=== PATIENT | female | born 1970 | race Caucasian/White ===

== ENCOUNTER 2016-09-09 18:06 | Inpatient (IN) | payer OTHER ==
[2016-09-09] MEDS ORDERED: methylPREDNISolone SOD SUCC 125 MG/2 ML VIAL IVP ONE (18:18)
[2016-09-09] MEDS ORDERED: D5W IV ONE (18:20)
[2016-09-09] MEDS ORDERED: ACYCLOVIR IV ONE (18:20)
--- NOTE | 2016-09-09 18:20 | EDPHY ---
H & P Stated Complaint: swollen lips. right side face swollen. started Friday getting worse Time Seen by Provider: 09/09/16 18:15 HPI/ROS: CHIEF COMPLAINT: Face infection HISTORY OF PRESENT ILLNESS: Patient is a 46-year-old female who comes to the emergency department complaining of swelling in her face and lips. She had a cold sore last week on her right upper lip that seemed to get larger and larger. For last 3 days she has also had swelling of her right cheek and upper and lower lips. She does not have any swelling of her tongue or throat. No difficulty breathing or stridor. She has not had any highs. No fever. No trauma. She has never had anything like this happen before. She does not have any significant past medical history. This is been progressing slowly. She has pictures of herself from last night on her phone the look essentially the same. REVIEW OF SYSTEMS: Constitutional: denies: chills, fever, recent illness, recent injury EENTM: See HPI Respiratory: denies: cough, shortness of breath Cardiac: denies: chest pain, irregular heart rate, lightheadedness, palpitations Gastrointestinal/Abdominal: denies: abdominal pain, diarrhea, nausea, vomiting, blood streaked stools Genitourinary: denies: dysuria, frequency, hematuria, pain Musculoskeletal: denies: joint pain, muscle pain Skin: denies: lesions, rash, jaundice, bruising Neurological: denies: headache, numbness, paresthesia, tingling, dizziness, weakness Hematologic/Lymphatic: denies: blood clots, easy bleeding, easy bruising Immunologic/allergic: denies: HIV/AIDS, transplant EXAM: GENERAL: Well-appearing, well-nourished and in no acute distress. HEAD: Atraumatic, normocephalic. EYES: Pupils equal round and reactive to light, extraocular movements intact, sclera anicteric, conjunctiva are normal. ENT: Patient has significantly edematous upper and lower lips. No visible tongue swelling or palate swelling or airway edema. She has weak peeing erythematous skin on her right cheek slightly [place]. No fluctuance. TMs normal , nares patent, oropharynx clear without exudates. Moist mucous membranes. NECK: Normal range of motion, supple without lymphadenopathy or JVD. No stridor. LUNGS: Breath sounds clear to auscultation bilaterally and equal. No wheezes rales or rhonchi. No stridor. HEART: Regular rate and rhythm without murmurs, rubs or gallops. ABDOMEN: Soft, nontender, normoactive bowel sounds. No guarding, no rebound. No masses appreciated. BACK: No CVA tenderness, no spinal tenderness, step-offs or deformities EXTREMITIES: Normal range of motion, no pitting or edema. No clubbing or cyanosis. NEUROLOGICAL: Cranial nerves II through XII grossly intact. Normal speech, normal gait. 5/5 strength, normal movement in all extremities, normal sensation PSYCH: Normal mood, normal affect. SKIN: See above Source: Patient Exam Limitations: No limitations - Personal History LMP (Females 10-55): Hysterectomy Current Tetanus/Diphtheria Vaccine: Yes Current Tetanus Diphtheria and Acellular Pertussis (TDAP): Yes - Medical/Surgical History Hx Asthma: No Hx Chronic Respiratory Disease: No Hx Diabetes: No Hx Cardiac Disease: No Hx Renal Disease: No Hx Cirrhosis: No Hx Alcoholism: No Hx HIV/AIDS: No Hx Splenectomy or Spleen Trauma: No - Family History Significant Family History: No pertinent family hx - Social History Smoking Status: Never smoked Alcohol Use: Sober Drug Use: None Constitutional: Initial Vital Signs Temperature (C) 36.9 C 09/09/16 18:07 Heart Rate 84 09/09/16 18:07 Respiratory Rate 16 09/09/16 18:07 Blood Pressure 135/96 H 09/09/16 18:07 O2 Sat (%) 96 09/09/16 18:07 O2 Delivery Mode Room Air Allergies/Adverse Reactions: No Known Allergies Allergy (Verified 09/09/16 20:46) Home Medications: Medication Instructions Recorded Herbals/Supplements -Info Only 1 ea PO DAILY 09/09/16 Valacyclovir HCl [Valtrex] 1,000 mg PO BID 09/09/16 Medical Decision Making - Diagnostics Imaging: Discussed imaging studies w/ machine scallop cutter Radiologist ED Course/Re-evaluation: Patient looks like she has impetigo of the right cheek causing angioedema of her lips and face. I will obtain a CT scan. I have ordered Rocephin and acyclovir wound cultures and blood cultures. We will consult ENT. Discussed the case with Dr SHABANA Cruz who will admit. 8:15 p.m. I discussed the case with Dr. Solis from ENT who will consult. She agrees with antibiotics and admission. At this point there is nothing surgical. She is not concerned about the patient's airway at this point. Differential Diagnosis: Partial list of the Differential diagnosis considered include but were not limited to; facial cellulitis abscess, dental infection, erysipelas, impetigo and although unlikely based on the history and physical exam, I also considered allergic reaction, urticaria, angioedema. - Data Points Laboratory Results: Laboratory Results 09/09/16 18:20 09/09/16 18:20 Microbiology Results: MICROBIOLOGY 09/09/16 16:55 Face - Swab Gram Stain - Final 09/09/16 16:55 Face - Swab Wound Culture - Preliminary Medications Given: Discontinued Medications Ceftriaxone Sodium/Dextrose (Rocephin 1 Gm (Premix)) 50 mls @ 100 mls/hr IV EDNOW ONE PRN Reason: Protocol Stop: 09/09/16 18:45 Last Admin: 09/09/16 18:39 Dose: 50 mls Acyclovir 70 mg/ Dextrose 101.4 mls @ 100 mls/hr IV EDNOW ONE Stop: 09/09/16 19:20 Last Admin: 09/09/16 19:42 Dose: 101.4 mls Methylprednisolone Sodium Succinate (Solu-Medrol) 125 mg IVP EDNOW ONE Stop: 09/09/16 18:19 Last Admin: 09/09/16 18:27 Dose: 125 mg Departure - Departure Disposition: [facility] Inpatient Acute Clinical Impression: Facial cellulitis Condition: Fair
[2016-09-09 18:31] LABS: % IMMATURE GRANULYOCYTES 0.4 % (0.0-1.1); ABSOLUTE IMMATURE GRANULOCYTES 0.04 10^3/uL (0.00-0.10); ADD DIFF? NO; ADD MORPH? NO; ADD SCAN? NO; ATYPICAL LYMPHOCYTE FLAG 10 (0-99); FRAGMENT RBC FLAG 0 (0-99); HEMOGLOBIN 16.2 g/dL (12.6-16.3); LEFT SHIFT FLG 0 (0-99); LIPEMIA HEMOLYSIS FLAG 90 (0-99); MEAN CELL HEMOGLOBIN 30.2 pg (27.9-34.1); MEAN CELL HEMOGLOBIN CONCENTR. 33.8 g/dL (32.4-36.7); MEAN CELL VOLUME 89.6 fL (81.5-99.8); MEAN PLATELET VOLUME 9.6 fL (8.7-11.7); PLATELET CLUMPS FLAG 10 (0-99); PLATELET COUNT 229 10^3/uL (150-400); RED BLOOD CELL COUNT 5.36 10^6/uL (4.18-5.33)
[2016-09-09 18:40] LABS: INR 1.02 (0.83-1.16); PROTIME(PATIENT) 13.3 SEC (12.0-15.0)
[2016-09-09 18:41] LABS: APTT 25.7 SEC (23.0-38.0)
[2016-09-09 18:53] LABS: ANION GAP 15 mEq/L (8-16); BILIRUBIN,TOTAL 1.2 mg/dL (0.1-1.4); CALCIUM 10.4 mg/dL (8.5-10.4); CARBON DIOXIDE 21 mEq/l (22-31); CHLORIDE 108 mEq/L (97-110); CREATININE 0.7 mg/dL (0.6-1.0); GLOMERULAR FILTRATION RATE > 60; GLUCOSE 105 mg/dL (70-100); POTASSIUM 3.9 mEq/L (3.5-5.2); SODIUM 144 mEq/L (134-144)
[2016-09-09] MEDS ORDERED: methylPREDNISolone SOD SUCC 125 MG/2 ML VIAL ONE (19:17)
[2016-09-09] MEDS ORDERED: IOPAMIDOL (ISOVUE-300) 100 ML BTL ONE (19:19)
[2016-09-09] MEDS ORDERED: ONDANSETRON DISINTEGRATING 4 MG TAB PO PRN (20:55)
[2016-09-09] MEDS ORDERED: ONDANSETRON 4 MG/2 ML VIAL IVP PRN (20:55)
[2016-09-09] MEDS ORDERED: ACETAMINOPHEN 325 MG TAB PO PRN (20:55)
[2016-09-09 21:03] LABS: COLOR PALE YELLOW; LEUKOCYTE ESTERASE,URINE 1+ (NEGATIVE); NITRITE,URINE NEGATIVE (NEGATIVE)
[2016-09-09] MEDS ORDERED: HYDROCODONE/APAP 5/325 TAB PO PRN (21:06)
[2016-09-09] MEDS ORDERED: IBUPROFEN 200 MG TAB PO PRN (21:06)
--- NOTE | 2016-09-09 22:00 | GHP ---
[f rep st] HISTORY AND PHYSICAL DATE OF ADMISSION: 09/09/2016 CHIEF COMPLAINT: Facial swelling. HISTORY OF PRESENT ILLNESS: A 46-year-old female who presents with 48 hours of swelling of her lips and cheek on the right side of her face. Patient noted having a cold sore on the top lip that she took a dose of Valtrex for which typically resolves any symptoms she had and then within 24 hours of the first experience of discomfort an ulceration of her lip developed, profound swelling of her lip s and the right side of her face. She denies any compromise of her breathing or ability to clear se cretions in her mouth. She is swallowing food comfortably. Has no nausea or vomiting. No subjecti ve fevers or chills. Does note discomfort in her cheek from the swelling in the pressure and tensio n in her cheek. Has noted through the course of the last 48 weeping of the surface of the tissue. D enies any dental pain. Denies any recent antibiotics. Denies any fevers measured at home. Denies nausea, vomiting, diarrhea, dysuria, hematuria, or other rashes. PAST MEDICAL HISTORY: Oral herpes. SOCIAL HISTORY: Negative for tobacco. Rare alcohol. No illicit drugs or marijuana. FAMILY HISTORY: Negative for any heart disease or skin conditions. REVIEW OF SYSTEMS: A 10-point review of systems is negative with the exception of that reported in the HPI. PHYSICAL EXAMINATION: VITAL SIGNS: Blood pressure 135/88 heart rate 78, respiratory rate 17, 94% o n room air, temp 36.9. GENERAL: This is a healthy-appearing young female sitting in bed. HEENT: N otable for profound edema of the upper and lower lips with edema and swelling of the right cheek. O ropharynx is clear posteriorly. Tongue is normal on examination. CARDIAC: Patient is regular rate and rhythm. PULMONARY: Clear to auscultation bilaterally. GASTROINTESTINAL: Positive bowel sound s. ABDOMEN: Soft and nontender in all 4 quadrants. MUSCULOSKELETAL: Negative for any lower extre mity edema. SKIN: Negative for any rashes. NEUROLOGIC: She is alert and oriented x3. PSYCHIATRIC : She is pleasant and cooperative on interview and examination. LABORATORY DATA: White count 9.7, hematocrit 48. Creatinine 0.7. A facial CT confirmed cellulitis . No deep abscesses or abnormalities are noted. ASSESSMENT AND PLAN: This is a 46-year-old female presenting with acute facial swelling. 1. Acute facial cellulitis. It is not involving the orbit. Most common pathogens including strep and staph. We will empirically treat with IV vancomycin. Patient received ceftriaxone in the emerg ency department. We will continue acyclovir as well. Ear, Nose, and Throat Surgery has been notifi ed and agree with the continuation of both antibiotics and acyclovir. They will see the patient og memoow. Dr. Solis will contact them from the emergency department. 2. Leukocytosis. Presumed secondary to the cellulitis above. Blood cultures were obtained. Dominic w on empiric antibiotic therapy. 3. Oral herpes. We will continue acyclovir treatment. She received an IV dose in the emergency de partment. We will continue with oral, dosing reviewed with Pharmacy at 400 t.i.d. 4. Prophylaxis. Patient is ambulating and overall feeling fine. 5. Diet. Regular. 6. Disposition. I expect greater than 2 midnights as the patient likely will need IV antibiotics f or several days prior to safe for disposition. I have discussed the case with the emergency room physician. Patient will be triaged to the medical -surgical floor for IV antibiotics. /[id number]/MODL
[2016-09-09] MEDS: VANCOMYCIN 1.25 GM in D5W 250 ML IV SCH (22:20)
[2016-09-09] MEDS: ACYCLOVIR 400 MG TAB PO SCH (22:20)
[2016-09-10 05:29] LABS: % IMMATURE GRANULYOCYTES 0.6 % (0.0-1.1); ABSOLUTE IMMATURE GRANULOCYTES 0.04 10^3/uL (0.00-0.10); ADD DIFF? NO; ADD MORPH? NO; ADD SCAN? NO; ATYPICAL LYMPHOCYTE FLAG 0 (0-99); FRAGMENT RBC FLAG 0 (0-99); HEMOGLOBIN 14.3 g/dL (12.6-16.3); LEFT SHIFT FLG 0 (0-99); LIPEMIA HEMOLYSIS FLAG 90 (0-99); MEAN CELL HEMOGLOBIN 30.6 pg (27.9-34.1); MEAN CELL HEMOGLOBIN CONCENTR. 34.9 g/dL (32.4-36.7); MEAN CELL VOLUME 87.6 fL (81.5-99.8); MEAN PLATELET VOLUME 9.4 fL (8.7-11.7); PLATELET CLUMPS FLAG 0 (0-99); PLATELET COUNT 218 10^3/uL (150-400); RED BLOOD CELL COUNT 4.68 10^6/uL (4.18-5.33); RED CELL DISTRIBUTION WIDTH 12.9 % (11.5-15.2)
[2016-09-10] MEDS: ACYCLOVIR 400 MG TAB PO SCH (09:01)
[2016-09-10] MEDS: VANCOMYCIN 1.25 GM in D5W 250 ML IV SCH (10:19)
--- NOTE | 2016-09-10 13:10 | HOSPPROG ---
Hospitalist Progress Note Assessment/Plan: 46y female with facial redness and swelling. This is my first encounter,chart reviewed. D/W Dr Berger and Dr Cruz. #Facial cellulitis cont redness on vanco #Facial swelling per patient less then yesterday #Adverse reaction possible denilson syndrome during vanco infusion stopped for now consulted ID, D/W Dr Berger #Herpes cont with acyclovir cx pending #Pain none #Dispo unclear, needs further evaluation and treatment ID consult Subjective: Feeling fine. No pain. No specific complaints. Objective: Vital Signs Temp Pulse Resp BP Pulse Ox 37.1 C 79 18 133/84 H 95 09/10/16 11:39 09/10/16 11:39 09/10/16 11:39 09/10/16 11:39 09/10/16 11:39 Laboratory Results 09/10/16 05:12 09/09/16 09/10/16 09/11/16 05:59 05:59 05:59 Intake Total 250 Balance 250 PT 13.3 SEC (12.0-15.0) 09/09/16 18:20 INR 1.02 (0.83-1.16) 09/09/16 18:20 - Physical Exam Constitutional: appears nourished, not in pain, uncomfortable Eyes: PERRL, anicteric sclera, EOMI Ears, Nose, Mouth, Throat: moist mucous membranes, hearing normal, oral ulcer Cardiovascular: regular rate and rhythym, No JVD, No edema Respiratory: no respiratory distress, no rales or rhonchi, reduced air movement Gastrointestinal: normoactive bowel sounds, No tenderness, No ascites Skin: warm, normal color, No erythema Musculoskeletal: full muscle strength, normal joint ROM, no joint effusions Neurologic: AAOx3 Psychiatric: interacting appropriately, not anxious, not encephalopathic ICD10 Worksheet Patient Problems: Problems Problem Status Onset Facial cellulitis Acute - ICD10 Problem Qualifiers (1) Facial cellulitis
[2016-09-10] MEDS: ceFAZolin 2 GM/DEXTROSE 100 ML IV SCH ×2 (15:35→21:22)
--- NOTE | 2016-09-10 15:42 | GCON ---
[f rep st] CONSULTATION DATE OF CONSULTATION: 09/10/2016 REFERRING PHYSICIAN: Michelle Brooks NP REASON FOR CONSULTATION: Facial cellulitis. CHIEF COMPLAINT: Right cheek swelling with drainage. HISTORY OF PRESENT ILLNESS: This is a 46-year-old, female with a past medical history sig nificant for oral herpes, fibroids who came in yesterday after increasing swelling and redness of he r right cheek as well as her lips and weeping areas on her right part of her mouth and into her hernandez k. She states that over the weekend she noticed 1 cold sore on the top of her right lip for which s he took a dose of Valtrex on Friday night. On Friday, she was out in the sun at a pig roast, but then by Friday evening, her lip started to swell up, especially on the right side. By Friday morn ing, the rest of her lip swelled and into her right cheek. This continued to worsen yesterday, and thus, she came into the ER. She had a CT done which showed no evidence of a dental infection or abs cess. The paranasal sinuses were clear. No lorene abscesses were noted at all, and it was just comp atible with cellulitis. She had blood cultures x2 sets drawn that are pending. She had a face swab done of the weeping area which showed 1+ gram-positive cocci, 1+ polys, and mixed oropharyngeal milse ra. She was given a dose of ceftriaxone in the ER along with a dose of IV acyclovir and then contin ued on vancomycin up on the floor. This morning, she had a dose of vancomycin, and during the infus ion, her face got flushed along with her neck and upper chest. It was deemed that she had a red man syndrome, and the infusion was stopped. Infectious Disease is now consulted for further evaluation and opinion. REVIEW OF SYSTEMS: GENERAL: Denied any fever or shaking chills. HEAD: No headaches except for du ring the infusion today. EYES: No change in vision. ENT: No sore throat, difficulty swallowing, ear pain, or ear drainage. RESPIRATORY: Denies any shortness of breath, cough, or sputum productio n. CARDIOVASCULAR: No chest pain or rapid heart beat. ABDOMEN: Denies any nausea, vomiting, abdo jared pain, or diarrhea. : No dysuria. No hematuria. BACK: No back pain. No CVA tenderness. EXTREMITIES: No lower extremity edema. MUSCULOSKELETAL: Denies any joint pains or muscle aches. SKIN: No other rashes or open wounds. Rest of 10-point review of systems essentially negative exc ept above. PAST MEDICAL HISTORY: Significant for oral herpes. PAST SURGICAL HISTORY: Significant for hysterectomy secondary to fibroids. One ovary was also barbara javier. She has had a tonsillectomy. ALLERGIES: She has an allergy to neomycin. SOCIAL HISTORY: She is a nonsmoker. She drinks alcohol socially. No illicit drugs. She has an in side dog. She lives with her son who is 19 who is healthy and has had no recent skin infections. 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 No contact with any animals recently. FAMILY HISTORY: Significant for leukemia in her grandfather. PHYSICAL EXAMINATION: VITAL SIGNS: Temperature current 37.1, pulse is 79, blood pressure 133/84, s aturations 95% on room air, respiratory rate is 18. GENERAL: Patient is resting in bed in no acute respiratory distress. Sitting up awake, alert, and oriented. HEENT: Pupils equal, round, reactiv e to light. There is no conjunctival injection. No petechiae. Oropharynx: She has swelling diffu sely of the lips with some sloughing of the corners. No oropharyngeal candidiasis noted. No oral u lcers noted. She has some erythema noted on the roof of her mouth. The posterior pharynx is not we ll visualized. Face: She has cellulitis noted predominantly over the right cheek, right neck, and then the perioral lesion. She has weeping yellow crusted areas involving the right side of her lips into the cheek. There is mild redness into the neck with some mild induration. Upper chest also h as some erythema noted over areas where she has had some sunburn in the past. CARDIOVASCULAR: S1, S2. Regular rate and rhythm. No murmurs appreciated. RESPIRATORY: Clear to auscultate bilaterall y. No rhonchi or rales appreciated. ABDOMEN: Positive bowel sounds in all 4 quadrants. Soft, non tender, nondistended. No obvious organomegaly appreciated. EXTREMITIES: No lower extremity edema. MUSCULOSKELETAL: No obvious joint effusions. SKIN: As above. LABORATORY DATA: White blood cell count 6.8, down from 9.7, hemoglobin 14.3, platelets are 218, ___ is 84%. Coags: INR 1.01. Venous lactic acid 0.9. Sodium 144, potassium 3.9, chloride 108 , bicarb 21, BUN is 14, creatinine 0.7. Urinalysis with urine WBCs 3-5, urine RBCs 3-5, one plus le ukocyte esterase, negative nitrites. Blood cultures x2 sets are pending. Face swab as stated above . Imaging results have all been reviewed by me and as stated above. She had a chest x-ray done, which showed airway disease although she does not have any pulmonary symptoms at this time. ASSESSMENT: Facial cellulitis, impetigo noted. PLAN: Most likely etiology will be streptococcal in nature and also Staphylococcus aureus could be a consideration as well. No increased risk factors for MRSA. No obvious findings at this point in time of a cold sore or herpes labialis. We will discontinue acyclovir. Would discontinue vancomyci n and place patient on Ancef for directive therapy. Signs and symptoms to monitor were discussed at length with the patient. If continues to improve, will consider transition over to oral therapy so on. Await blood culture results. Can also apply some topical Bactroban to the site as well with cl ose monitoring. Care coordinated with ENT. Thank you very much for the opportunity to care for your patient in consultation. /[id number]/MODL
--- NOTE | 2016-09-10 16:08 | GCON ---
[f rep st] CONSULTATION DATE OF CONSULTATION: 09/10/2016 REASON FOR CONSULTATION: Facial cellulitis. HOSPITAL COURSE: This is a 46-year-old female, with about a 4-day history of worsening right facial swelling and redness. The patient reports this started with a single cold sore on her upper lip an d then starting around Friday she started developing redness and swelling of her right kind of lip , chin area. Also developed yellow crusting and weeping. During this time, she had been taking ant iviral medication for the cold sore but no other antibiotics. She does not have a history of facial infections or recurrent infections or MRSA infections in other parts of her body. She had a little bit of swelling inside her mouth but otherwise no trouble breathing or swallowing. She was admitte d to the hospital and started on IV vancomycin and steroids. This improved the swelling and redness significantly but she did have a reaction to vancomycin. Despite this, she continues to have impro vement. She does have some redness on her chest but reports this is only since getting the vancomyc in and not from the facial infection. OBJECTIVE: VITAL SIGNS: Stable. CT scan report shows no evidence of a fluid collection. Patient awake and alert. No trouble breathing or talking. She does have significant edema of both upper an d lower lips with some mild yellow crusting on the lips them self. The right oral commissure and ar ound the lips and down onto the chin she has a significant amount of weepy yellow crusting. No visi ble cold sore or herpetic lesions seen. She has a significant amount of edema and erythema of the s kin of the upper and lower lips on the right side and chin extending down on to the submental and pepper bmandibular region. There is a break in the redness and additional redness in the area of previous sunburn on her chest and shoulder. ASSESSMENT/PLAN: This is a 46-year-old female with impetigo of the face. No evidence of an abscess or drainable fluid collection. Defer to Infectious Disease for antibiotic treatment but at this ti me, I have no significant concern for methicillin-resistant Staphylococcus aureus. Additionally wou ld add Bactroban to the yellow crusting areas in the lips. /[id number]/MODL
[2016-09-10] MEDS: MUPIROCIN 2% 22 GM OINT TP SCH ×2 (16:24→21:22)
[2016-09-11] MEDS: ceFAZolin 2 GM/DEXTROSE 100 ML IV SCH ×3 (05:10→21:43)
[2016-09-11] MEDS: MUPIROCIN 2% 22 GM OINT TP SCH ×3 (10:16→21:43)
[2016-09-11] MEDS: diphenhydrAMINE 25 MG CAP PO PRN ×2 (11:02→17:24)
--- NOTE | 2016-09-11 11:03 | PCMIDPN ---
Assessment/Plan: #R facial cellulitis/impetigo : appears about 50% improved compared to admission based on pictures. Suspect mediated by streptococcus, no MRSA on facial swab. WBC improved yesterday, no labs today --continue IV ancef, another day or two --try to sleep with HOB elevated --Benadryl for itching medications, Abx #2 ancef 2gm IV q8, #1 microbiology 09/09 blood cx (2) NGTD 09/09 face swab: skin evita Subjective: worried about some redness under R eye; no pain throughout illness increasing symptoms of itching R face reporting great care by nursing staff and great service from dietary Objective: Vital Signs Temp Pulse Resp BP Pulse Ox 36.8 C 70 16 120/82 H 92 09/11/16 07:37 09/11/16 07:37 09/11/16 07:37 09/11/16 07:37 09/11/16 07:37 Laboratory Results 09/10/16 05:12 09/10/16 09/11/16 09/12/16 05:59 05:59 05:59 Intake Total 250 Balance 250 - Physical Exam General Appearance: alert, no apparent distress, non-toxic EENT: other (R facial swelling and swollen submandibular gland, NT; lips swollen but 50% improved), No scleral icterus, No pale conjunctiva Respiratory: lungs clear, No accessory muscle use Neck: supple Cardiac/Chest: regular rate, rhythm Extremities: No pedal edema Abdomen: non-tender, soft, distended Skin: erythema (R face, r submandicular, r neck, small amount redness under R eye but suspect just due to lying supine) Neuro/Psych: alert, normal mood/affect, oriented x 3 - Time Spent With Patient Time Spent with Patient: greater than 25 minutes (education about pathogenesis of skin infection, duration of infection, reviewed lab work) Time Spent with Patient: Greater than 25 minutes spent on this patients care, greater than 50% of time spent counseling, educating, and coordinating care regarding the above mentioned plan. ICD10 Worksheet Patient Problems: Problems Problem Status Onset Facial cellulitis Acute
--- NOTE | 2016-09-11 13:02 | HOSPPROG ---
Hospitalist Progress Note Assessment/Plan: 46y female with facial redness and swelling. This is my first encounter,chart reviewed. #Facial cellulitis/impetigo cont redness ancef day #2 now w significant itching Benadryl and trial of Pepcid #Adverse reaction to Vanco per patient she got bright red and it resolved with stopping Vanco #Herpes cont with acyclovir cx shows mixed evita #Pain none #Dispo: Hopefully in next day or so Subjective: Reva says the swelling is much improved on her face/ now with increased itching. Objective: Vital Signs Temp Pulse Resp BP Pulse Ox 36.8 C 70 16 120/82 H 92 09/11/16 07:37 09/11/16 07:37 09/11/16 07:37 09/11/16 07:37 09/11/16 07:37 Laboratory Results 09/10/16 05:12 09/10/16 09/11/16 09/12/16 05:59 05:59 05:59 Intake Total 250 Balance 250 PT 13.3 SEC (12.0-15.0) 09/09/16 18:20 INR 1.02 (0.83-1.16) 09/09/16 18:20 - Physical Exam Constitutional: no apparent distress, appears nourished Eyes: PERRL Ears, Nose, Mouth, Throat: hearing normal Cardiovascular: regular rate and rhythym Respiratory: no respiratory distress Gastrointestinal: normoactive bowel sounds Skin: other (right facial area, right neck and submandibular area w erythema/ has some dry, flakey skin on her face) Musculoskeletal: full muscle strength Neurologic: AAOx3 Psychiatric: interacting appropriately, not anxious ICD10 Worksheet Patient Problems: Problems Problem Status Onset Facial cellulitis Acute
[2016-09-11] MEDS: FAMOTIDINE 20 MG TAB PO SCH (21:41)
[2016-09-12] MEDS: ceFAZolin 2 GM/DEXTROSE 100 ML IV SCH ×2 (05:37→13:12)
[2016-09-12] MEDS: diphenhydrAMINE 25 MG CAP PO PRN ×2 (05:37→11:38)
[2016-09-12 07:32] VITALS: BP 124/91; PULSE 72; RESP 18; TEMP 98.1; O2SAT 94
[2016-09-12] MEDS: FAMOTIDINE 20 MG TAB PO SCH (08:24)
[2016-09-12] MEDS: MUPIROCIN 2% 22 GM OINT TP SCH (08:25)
--- NOTE | 2016-09-12 09:31 | PCMIDPN ---
Assessment/Plan: #R facial cellulitis/impetigo : Further improvement today. Suspect mediated by streptococcus. --dc Keflex 500mg QID x 11 more days after 1300 dose Ancef --f/u appt with ID listed in discharge plan # Rash L thigh, eczema like appearance --continue Benadryl --education given about potential for drug reaction and contact Our office if worsening sx medications, Abx #3 Ancef 2gm IV q8, #2 microbiology 09/09 blood cx (2) NGTD 09/09 face swab: skin evita care coordinated with [facility] Subjective: feeling much better today. Did developed a rash on her medial left thigh that is pruritic Objective: Vital Signs Temp Pulse Resp BP Pulse Ox 36.7 C 72 18 124/91 H 94 09/12/16 07:29 09/12/16 07:29 09/12/16 07:29 09/12/16 07:29 09/12/16 07:29 Laboratory Results 09/10/16 05:12 09/11/16 09/12/16 09/13/16 05:59 05:59 05:59 Intake Total 1500 Balance 1500 - Physical Exam General Appearance: alert EENT: other ( significant reduction in swelling of the right face as well as erythema. Lip significantly less swollen today as well.), No scleral icterus, No dry mucous membranes, No poor dentition Respiratory: No accessory muscle use Neck: supple Extremities: No pedal edema Skin: rash ( maculopapular round eruption left medial thigh) ICD10 Worksheet Patient Problems: Problems Problem Status Onset Facial cellulitis Acute
--- NOTE | 2016-09-12 10:40 | HOSPPROG ---
Hospitalist Progress Note Assessment/Plan: 46y female with facial redness and swelling. #Facial cellulitis/impetigo cont redness ancef day #3 now w significant itching Benadryl and Pepcid will go home on 11 days of Keflex QID #rash/ eczemas area on left hamstring area Dr Weber reviewed w her if this gets worse to check in #Adverse reaction to Vanco per patient she got bright red and it resolved with stopping Vanco #Herpes cont with acyclovir cx shows mixed evita #Pain none #Dispo: dc today after 1 o'clock dose of Ancef Subjective: Reva is feeling better except for the itching. Objective: Vital Signs Temp Pulse Resp BP Pulse Ox 36.7 C 72 18 124/91 H 94 09/12/16 07:29 09/12/16 07:29 09/12/16 07:29 09/12/16 07:29 09/12/16 07:29 Laboratory Results 09/10/16 05:12 09/11/16 09/12/16 09/13/16 05:59 05:59 05:59 Intake Total 1500 Balance 1500 PT 13.3 SEC (12.0-15.0) 09/09/16 18:20 INR 1.02 (0.83-1.16) 09/09/16 18:20 - Physical Exam Constitutional: no apparent distress, appears nourished, not in pain Eyes: anicteric sclera Ears, Nose, Mouth, Throat: hearing normal Respiratory: no respiratory distress Skin: warm, other (right side of face, neck area with less redness, dry flakey skin/ also, has an area of redness on the back of the left thigh area) Neurologic: AAOx3 Psychiatric: interacting appropriately, not anxious ICD10 Worksheet Patient Problems: Problems Problem Status Onset Facial cellulitis Acute
--- NOTE | 2016-09-12 11:28 | GDS ---
[f rep st] DISCHARGE SUMMARY DISCHARGE DIAGNOSES: 1. Facial cellulitis/impetigo. 2. Rash/eczema to the left hamstring area. 3. Adverse reaction to vancomycin. 4. Herpes. CONSULTATIONS DURING HER STAY: 1. Dr. Marleni Baker. 2. Dr. Sandra Berger. HISTORY OF PRESENT ILLNESS: Briefly, the patient is a 46-year-old female, who presented with 48 hours of swelling to her lips and cheek on the right side of her face. She had a sore on her top lip area, for which she took a dose of Valtrex. Prior to her admission, she had 40 hours of weeping of the right facial area, extending down to the right neck area. She was seen and evaluated by Dr. Marleni Baker with ENT, who noted that she had a facial cellulitis. She reviewed the CT scan, which showed no evidence of fluid collection. Subsequently, she was seen and evaluated by the infectious disease doctor, and started treatment with Ancef. Today, she is markedly better. She will follow up with Dr. Leatha Weber in the outpatient setting. HOSPITAL COURSE PER PROBLEM: 1. Facial cellulitis/impetigo. She was treated with Ancef. She will go home on Keflex. She is having significant itching. The Benadryl and Pepcid have been helping. 2. Rash. This appeared to be more like eczema when I evaluated it. It is on her left hamstring area. Recommended if this gets worse, to call Dr. Weber. 3. Adverse reaction to vancomycin. She got bright red when given this, resolved with stopping it. Now listed as an allergy. 4. Herpes. Acyclovir. PENDING LABS AND TESTS: None. CONDITION ON DISCHARGE: Stable. Blood pressure is 124/91, O2 sats on room air 94%, respiratory rate is 18, pulse of 72, temperature is 36.7 Celsius. MEDICATIONS AT DISCHARGE: Please see the EMR. DISCHARGE INSTRUCTIONS: 1. To follow up with Dr. Weber. 2. If she develops any type of allergic reaction, to stop the Keflex immediately. /[id number]/MODL MTDD
== END 2016-09-12 14:13 | disposition home or self-care (01) | DRG 603 ==
LOC: OBSVTOIN 20:55 → F3E 21:40
PROVIDERS: ADMIT Hospitalist; ATTEND Hospitalist
DX: L03.211 Cellulitis of face (principal); L01.00 Impetigo, unspecified; L30.9 Dermatitis, unspecified; T36.8X5A Adverse effect of other systemic antibiotics, initial encounter; B00.1 Herpesviral vesicular dermatitis
CPT/HCPCS: 96365; J0133; J0690; J0696; J3370; Q9967

== ENCOUNTER → 2017-04-03 | Outpatient (CLI) | payer OTHER | LOC: FIMAGING 12:50 | PROVIDERS: ATTEND Family Medicine | DX: Z12.31 Encounter for screening mammogram for malignant neoplasm of breast (principal) ==

== ENCOUNTER 2017-11-24 02:42 | Emergency (ER) | payer OTHER ==
[2017-11-24 02:48] VITALS: BP 133/83
--- NOTE | 2017-11-24 03:00 | EDPHY ---
H & P Stated Complaint: SWOLLEN UPPER LIP/ADMITTED LAST YEAR FOR SAME Time Seen by Provider: 11/24/17 03:00 HPI/ROS: HPI CHIEF COMPLAINT: Upper lip swelling HISTORY OF PRESENT ILLNESS: Very pleasant 47-year-old female, she has a history herpes, impetigo, facial cellulitis she was hospitalized in last September. She states it was way worse than what it is tonight. She presents emergency room with upper lip swelling mainly asymmetrical on the right side, she states on Friday she developed a cold sore. She took 2 doses of valacyclovir and went away however began having some lip swelling over the last 24-48 hours. No fever. No significant pain but does throb. Denies any trouble swallowing, denies tongue swelling, denies trouble breathing. Here in the emergency room she appears well nontoxic she does have some yellow crusting over the top of the upper lip. No abscess. No ulcer. No active herpetic lesion. No tongue swelling on exam. Patient is declined hospital admission this time she would like to go home. She does not want to be admitted for this. We discussed about return precautions she understands return if she develops worsening swelling, pain, fever trouble breathing trouble swallowing tongue swelling. I did review her last discharge summary. She did well on Keflex. Past Medical History: Herpes, history of impetigo, facial cellulitis Past Surgical History: No recent surgery Social History: Denies drugs alcohol tobacco Family History: Noncontributory ROS REVIEW OF SYSTEMS: 10 Systems were reviewed and negative with the exception of the elements mentioned in the history of present illness. Exam Constitutional triage nursing summary reviewed, vital signs reviewed, awake/ alert. Eyes normal conjunctivae and sclera, EOMI, PERRLA. HENT oropharynx: Upper lip swelling present. More on the right side than the left side of the upper lip, additionally some yellow crusting consistent with most likely impetigo. No ulcer. No herpetic lesion. Tongue is normal. Uvula posterior pharynx is normal. No stridor. No trouble swallowing. normal inspection, atraumatic, moist mucus membranes, no epistaxis, neck supple / no meningismus, no raccoon eyes. Respiratory clear to auscultation bilaterally, normal breath sounds, no respiratory distress, no wheezing. Cardiovascular rate normal, regular rhythm, no murmur, no edema, distal pulses normal. Gastrointestinal soft, non-tender, no rebound, no guarding, normal bowel sounds, no distension, no pulsatile mass. Genitourinary no CVA tenderness. Musculoskeletal no midline vertebral tenderness, full range of motion, no calf swelling, no tenderness of extremities, no meningismus, good pulses, neurovascularly intact. Skin pink, warm, & dry, no rash, skin atraumatic. Neurologic awake, alert and oriented x 3, AAOx3, moves all 4 extremities equally, motor intact, sensory intact, CN II-XII intact, normal cerebellar, normal vision, normal speech. Psychiatric normal mood/affect. Heme/Lymph/Immune no lymphadenopathy. Differential Diagnosis: Includes but is not limited to in a particular order herpes, facial cellulitis, lip cellulitis, impetigo Medical Decision Making: Plan for this patient IM Ancef will be given here. Additionally Keflex p.o.. Additionally Decadron. Patient declined hospital admission this time however she understands she has worsening swelling pain redness or fever trouble swallowing trouble breathing she needs return to the emergency room she understands this. She is comfortable this plan. Re-evaluation: Keflex for home. Patient was given IM Ancef here in emergency room, p.o. Decadron and p.o. Keflex Strict return precautions discussed with the patient she understands Source: Patient - Personal History LMP (Females 10-55): Hysterectomy Current Tetanus Diphtheria and Acellular Pertussis (TDAP): Yes - Medical/Surgical History Hx Asthma: No Hx Chronic Respiratory Disease: No Hx Diabetes: No Hx Cardiac Disease: No Hx Renal Disease: No Hx Cirrhosis: No Hx Alcoholism: No Hx HIV/AIDS: No Hx Splenectomy or Spleen Trauma: No Other PMH: Oral HSV, HYSTERECTOMY - Social History Smoking Status: Never smoked Constitutional: Initial Vital Signs Temperature (C) 37.0 C 11/24/17 02:45 Heart Rate 87 11/24/17 02:45 Respiratory Rate 16 11/24/17 02:45 Blood Pressure 133/83 H 11/24/17 02:45 O2 Sat (%) 96 11/24/17 02:45 O2 Delivery Mode Room Air Allergies/Adverse Reactions: vancomycin Allergy (Severe, Verified 09/11/16 13:37) Red Man Syndrome Home Medications: Medication Instructions Recorded Valacyclovir HCl [Valtrex] 1,000 mg PO BID 09/09/16 Cephalexin [Keflex] 500 mg PO Q6H #28 cap 11/24/17 Departure - Departure Disposition: Home, Routine, Self-Care Clinical Impression: Facial cellulitis Condition: Good Instructions: Cellulitis (ED) Additional Instructions: 1. Return immediately to the emergency room if you have worsening swelling, pain , redness questions or concerns 2. Additionally follow up with her primary care doctor for recheck in 12-24 hours 3. Return if worse. Referrals: Rose Díaz MD [Primary Care Provider] - As per Instructions Prescriptions: Cephalexin [Keflex] 500 mg PO Q6H #28 cap
[2017-11-24] MEDS ORDERED: CEFAZOLIN 330 MG/ML IM SYRINGE IM ONE ×2 (03:06→03:15)
[2017-11-24] MEDS ORDERED: DEXAMETHASONE 10 MG/ML VIAL PO ONE (03:06)
[2017-11-24] MEDS ORDERED: CEPHALEXIN 500MG PREPACK#4 BTL TAKEHOME ONE (03:06)
[2017-11-24] MEDS ORDERED: CEPHALEXIN 500 MG CAP PO ONE (03:06)
== END 2017-11-24 03:36 | disposition home or self-care (01) ==
DX: L03.211 Cellulitis of face (principal)
CPT/HCPCS: J1100

== ENCOUNTER → 2018-04-10 | Outpatient (CLI) | payer OTHER | LOC: FIMAGING 10:28 | PROVIDERS: ATTEND Family Medicine | DX: Z12.31 Encounter for screening mammogram for malignant neoplasm of breast (principal) ==